=== PATIENT | female | born 1935 | race Caucasian/White ===

== ENCOUNTER 2020-10-31 10:47 | Observation (INO) | payer MEDICARE, BC ==
[~2020-10-31] VITALS: Ht 167.6 cm; Wt 81.5 kg
--- NOTE | ~2020-10-31 | EMS ---
[address] [address] EMS Patient Care Report Name: DAYDAY PEOPLES Room: [address] Abimael Martinez#: [id number] Admission: 10/31/20 Attend Phys: Lucio Neff MD, F Discharge: 11/01/20 Date of : 34 Report #: [id number] THIS REPORT FOR: //name// Report Transmitted: 11/03/2020 21:09 EMS Care Summary [facility] Incident [id number] @ 10/31/2020 09:54 Incident Location [address] Patient DAYDAY PEOPLES Female, 85 Years 1935 Patient Address [address] [place] [address] Patient History Hypertension (HTN),Hyperlipidemia, Patient Allergies No known allergies, Patient Medications Diclofenac, Lisinopril, Simvastatin, Oxybutynin, Amlodipine, Metoprolol, Chief Complaint Dizziness Disposition Transported Lights/[place] Dispatch Reason Sick Person Transported To [facility] Narrative Dispatch: [facility] was dispatched for a female patient with a low pulse and shortness of breath. Med 1 copied tones and went en route emergent. Chief Complaint: Med 1 arrived on scene to find the patient sitting upright in her assessment room. Patient is alert and does not appear to be in any distress [place] [id number] EMS Patient Care Report Name: DAYDAY PEOPLES Room: [address] Abimael M.R.#: [id number] Admission: 10/31/20 Attend Phys: Lucio Neff MD, F Discharge: 11/01/20 Date of : 34 Report #: [id number] or discomfort. Patient???s PCP states the patient is experiencing bradycardia and shortness of breath with no known medical history of either. Patient presents with a pulse of 38. Patient denies chest pain, or discomfort. Patient states she is experiencing intermittent dizziness. History of present illness/YVONNE: Patient states she has been experiencing generalized weakness for approx. 2 weeks. Patient states she was ???unsure of why she was experiencing weakness.??? Patient states she has no known history of bradycardia or shortness of breath. Patient states she started to have an increased feeling of weakness and called her PCP for an appointment. Assessment: Airway: Clear, patent, and self maintained. Breathing: Clear, and equal bilaterally. Non labored. Circulation: Skin is pink, warm, and dry. Weak radial pulses. Disability: A&OX4, GCS 15. Exposures: No life threats were found. See ???assessments??? tab for further. Reason for ambulance: Patient is experiencing bradycardia, requesting EMS treatment and transport to [facility]. Treatments: ALS assessment. 12 lead EKG showing sinus bradycardia. 20G IV LAC with 300ml LR fluid bolus. 3 liters O2 ETCO2 nasal cannula showing non obstructed waveforms. EPI 1:1000 drip 2mcg/min. Vitals monitored throughout transport. Summary: With the assistance of EMS, the patient was placed onto the cot, secured in place, and placed into the ambulance for transport. The patient was placed onto the monitor, and an IV was established. Med 1 went en route emergent to [facility]. The patients overall condition remained unchanged. An EPI 1:1000 drip was started at 2 mcg/min. Radio report was given with no further questions or orders received. Med 1 arrived at destination and the patient was taken to room 15 in the ED where she was sheet transferred onto the bed. Report was given and signatures and paperwork were received. Med 1 returned back in service. Appended: Treatments: 12 lead EKG showing third degree heart block. Initial Vitals @10:26P: 43,R: 20,BP: 80/60,EtCO2: 35,SpO2: 98, @10:17P: 38,R: 19,EtCO2: 23,SpO2: 91, @10:47P: 38,R: 20,BP: 88/50,EtCO2: 34,SpO2: 98, @10:35P: 36,R: 21,BP: 100/50,EtCO2: 34,SpO2: 98, [place] [address] EMS Patient Care Report Name: DAYDAY PEOPLES Room: [place] [address] DIS Abimael M.R.#: [id number] Admission: 10/31/20 Attend Phys: Lucio Neff MD, F Discharge: 11/01/20 Date of : 34 Report #: [id number] @10:12P: 40,R: 18,EtCO2: 34,SpO2: 97, @10:17P: 38,R: 16,BP: 108/52,SpO2: 98, @10:05P: 43,R: 18,BP: 118/56,SpO2: 95, @10:02P: 38,R: 18,BP: 110/58,GCS: 15,Glucose: 142,SpO2: 95,Revised Trauma: 12, Assessments @09:58MENTAL:Time Oriented,Person Oriented,Place Oriented,Event Oriented,SKIN:HEENT:LUNG SOUNDS:ABDOMEN:PELVIS//GI:EXTREMITIES:Capillary Refill: Right Upper: < 2 Sec,PULSE:Radial: 2+ Normal,NEURO:@10:20MENTAL:Person Oriented,Place Oriented,Time Oriented,Event Oriented,SKIN:HEENT:LUNG SOUNDS:ABDOMEN:PELVIS//GI:EXTREMITIES:Capillary Refill: Right Upper: < 2 Sec,PULSE:Radial: 2+ Normal,NEURO: Impression Dizziness Procedures @10:2612-Lead ECGResponse: UnchangedSucceeded@10:0512-Lead ECGResponse: UnchangedSucceeded@10:1712-Lead ECGResponse: UnchangedSucceeded@10:3512-Lead ECGResponse: UnchangedSucceeded@10:05ALS AssessmentResponse: UnchangedSucceeded@10:15Lactated Ringers 300cc (20 ga) Site: Antecubital-LeftResponse: UnchangedSucceeded@10:35Epinephrine 1:1 - 2 Micrograms (mcg) - Intravenous (IV)Response: Improved@10:16Oxygen FlowRate: 3 Device: CO2 Nasal Cannula Response: UnchangedSucceeded Timeline 09:52,Call Received 09:54,Dispatched 09:54,En Route 09:56,On Scene 09:58,At Patient 10:02,BP: 110/58 M,PULSE: 38,RR: 18 R,SPO2: 95 Ox,ETCO2: ,B,PAIN: ,GCS: 15, 10:05,ALS Assessment,Response: UnchangedSucceeded, 10:05,12-Lead ECG,Response: UnchangedSucceeded, 10:05,BP: 118/56 M,PULSE: 43,RR: 18 R,SPO2: 95 Ox,ETCO2: ,BG: ,PAIN: ,GCS: , 10:12,BP: / M,PULSE: 40,RR: 18 R,SPO2: 97 Ox,ETCO2: 34 ,BG: ,PAIN: ,GCS: , 10:15,Lactated Ringers 300cc 20 ga Site: Antecubital-Left,Response: UnchangedSucceeded, 10:16,Oxygen FlowRate: 3 Device: CO2 Nasal Cannula Response: UnchangedSucceeded, 10:16,Depart Scene 10:17,BP: 108/52 M,PULSE: 38,RR: 16 R,SPO2: 98 Ox,ETCO2: ,BG: ,PAIN: ,GCS: , 10:17,12-Lead ECG,Response: UnchangedSucceeded, 10:17,BP: / M,PULSE: 38,RR: 19 R,SPO2: 91 Ox,ETCO2: 23 ,BG: ,PAIN: ,GCS: , 10:26,12-Lead ECG,Response: UnchangedSucceeded, 10:26,BP: 80/60 M,PULSE: 43,RR: 20 R,SPO2: 98 Ox,ETCO2: 35 ,BG: ,PAIN: ,GCS: , [place] [address] EMS Patient Care Report Name: DAYDAY PEOPLES Room: [address] Abimael Martinez#: [id number] Admission: 10/31/20 Attend Phys: Lucio Neff MD, F Discharge: 11/01/20 Date of : 34 Report #: [id number] 10:35,Epinephrine 1:1 - 2 Micrograms (mcg) - Intravenous (IV),Response: Improved 10:35,12-Lead ECG,Response: UnchangedSucceeded, 10:35,BP: 100/50 M,PULSE: 36,RR: 21 R,SPO2: 98 Ox,ETCO2: 34 ,BG: ,PAIN: ,GCS: , 10:44,At Destination 10:47,BP: 88/50 M,PULSE: 38,RR: 20 R,SPO2: 98 Ox,ETCO2: 34 ,BG: ,PAIN: ,GCS: , 11:32,Call Closed Disclaimer v1.1 Copyright 2020 [employer] This EMS Care Summary contains data elements from the applicable legal record (which may be displayed differently). It is designed to provide pertinent information for the following purposes: continuity of care, clinical quality, and state data reporting. The complete legal record is available to ED staff and administrators of the receiving hospital in [employer]'s Patient Tracker. All data is provided "as is."
--- NOTE | ~2020-10-31 | EMS ---
[address] [address] EMS Patient Care Report Name: DAYDAY PEOPLES Room: [address] Abimael Martinez#: [id number] Admission: 10/31/20 Attend Phys: Lucio Neff MD, F Discharge: 11/01/20 Date of : 34 Report #: [id number] THIS REPORT FOR: //name// Report Transmitted: 11/01/2020 22:34 EMS Care Summary [facility] Incident [id number] @ 10/31/2020 09:54 Incident Location [address] Patient DAYDAY PEOPLES Female, 85 Years 1935 Patient Address [address] [place] [address] Patient History Hypertension (HTN),Hyperlipidemia, Patient Allergies No known allergies, Patient Medications Diclofenac, Lisinopril, Simvastatin, Oxybutynin, Amlodipine, Metoprolol, Chief Complaint Dizziness Disposition Transported Lights/[place] Dispatch Reason Sick Person Transported To [facility] Narrative Dispatch: [facility] was dispatched for a female patient with a low pulse and shortness of breath. Med 1 copied tones and went en route emergent. Chief Complaint: Med 1 arrived on scene to find the patient sitting upright in her assessment room. Patient is alert and does not appear to be in any distress [place] [id number] EMS Patient Care Report Name: DAYDAY PEOPLES Room: [address] Abimael M.R.#: [id number] Admission: 10/31/20 Attend Phys: Lucio Neff MD, F Discharge: 11/01/20 Date of : 34 Report #: [id number] or discomfort. Patient???s PCP states the patient is experiencing bradycardia and shortness of breath with no known medical history of either. Patient presents with a pulse of 38. Patient denies chest pain, or discomfort. Patient states she is experiencing intermittent dizziness. History of present illness/YVONNE: Patient states she has been experiencing generalized weakness for approx. 2 weeks. Patient states she was ???unsure of why she was experiencing weakness.??? Patient states she has no known history of bradycardia or shortness of breath. Patient states she started to have an increased feeling of weakness and called her PCP for an appointment. Assessment: Airway: Clear, patent, and self maintained. Breathing: Clear, and equal bilaterally. Non labored. Circulation: Skin is pink, warm, and dry. Weak radial pulses. Disability: A&OX4, GCS 15. Exposures: No life threats were found. See ???assessments??? tab for further. Reason for ambulance: Patient is experiencing bradycardia, requesting EMS treatment and transport to [facility]. Treatments: ALS assessment. 12 lead EKG showing sinus bradycardia. 20G IV LAC with 300ml LR fluid bolus. 3 liters O2 ETCO2 nasal cannula showing non obstructed waveforms. EPI 1:1000 drip 2mcg/min. Vitals monitored throughout transport. Summary: With the assistance of EMS, the patient was placed onto the cot, secured in place, and placed into the ambulance for transport. The patient was placed onto the monitor, and an IV was established. Med 1 went en route emergent to [facility]. The patients overall condition remained unchanged. An EPI 1:1000 drip was started at 2 mcg/min. Radio report was given with no further questions or orders received. Med 1 arrived at destination and the patient was taken to room 15 in the ED where she was sheet transferred onto the bed. Report was given and signatures and paperwork were received. Med 1 returned back in service. Initial Vitals @10:26P: 43,R: 20,BP: 80/60,EtCO2: 35,SpO2: 98, @10:17P: 38,R: 19,EtCO2: 23,SpO2: 91, @10:47P: 38,R: 20,BP: 88/50,EtCO2: 34,SpO2: 98, @10:35P: 36,R: 21,BP: 100/50,EtCO2: 34,SpO2: 98, @10:12P: 40,R: 18,EtCO2: 34,SpO2: 97, [place] [address] EMS Patient Care Report Name: DAYDAY PEOPLES Room: [place] [address] DIS Abimael Martinez#: [id number] Admission: 10/31/20 Attend Phys: Lucio Neff MD, F Discharge: 11/01/20 Date of : 34 Report #: [id number] @10:17P: 38,R: 16,BP: 108/52,SpO2: 98, @10:05P: 43,R: 18,BP: 118/56,SpO2: 95, @10:02P: 38,R: 18,BP: 110/58,GCS: 15,Glucose: 142,SpO2: 95,Revised Trauma: 12, Assessments @09:58MENTAL:Time Oriented,Person Oriented,Place Oriented,Event Oriented,SKIN:HEENT:LUNG SOUNDS:ABDOMEN:PELVIS//GI:EXTREMITIES:Capillary Refill: Right Upper: < 2 Sec,PULSE:Radial: 2+ Normal,NEURO:@10:20MENTAL:Person Oriented,Place Oriented,Time Oriented,Event Oriented,SKIN:HEENT:LUNG SOUNDS:ABDOMEN:PELVIS//GI:EXTREMITIES:Capillary Refill: Right Upper: < 2 Sec,PULSE:Radial: 2+ Normal,NEURO: Impression Dizziness Procedures @10:2612-Lead ECGResponse: UnchangedSucceeded@10:0512-Lead ECGResponse: UnchangedSucceeded@10:1712-Lead ECGResponse: UnchangedSucceeded@10:3512-Lead ECGResponse: UnchangedSucceeded@10:05ALS AssessmentResponse: UnchangedSucceeded@10:15Lactated Ringers 300cc (20 ga) Site: Antecubital-LeftResponse: UnchangedSucceeded@10:35Epinephrine 1:1 - 2 Micrograms (mcg) - Intravenous (IV)Response: Improved@10:16Oxygen FlowRate: 3 Device: CO2 Nasal Cannula Response: UnchangedSucceeded Timeline 09:52,Call Received 09:54,Dispatched 09:54,En Route 09:56,On Scene 09:58,At Patient 10:02,BP: 110/58 M,PULSE: 38,RR: 18 R,SPO2: 95 Ox,ETCO2: ,B,PAIN: ,GCS: 15, 10:05,ALS Assessment,Response: UnchangedSucceeded, 10:05,12-Lead ECG,Response: UnchangedSucceeded, 10:05,BP: 118/56 M,PULSE: 43,RR: 18 R,SPO2: 95 Ox,ETCO2: ,BG: ,PAIN: ,GCS: , 10:12,BP: / M,PULSE: 40,RR: 18 R,SPO2: 97 Ox,ETCO2: 34 ,BG: ,PAIN: ,GCS: , 10:15,Lactated Ringers 300cc 20 ga Site: Antecubital-Left,Response: UnchangedSucceeded, 10:16,Oxygen FlowRate: 3 Device: CO2 Nasal Cannula Response: UnchangedSucceeded, 10:16,Depart Scene 10:17,BP: 108/52 M,PULSE: 38,RR: 16 R,SPO2: 98 Ox,ETCO2: ,BG: ,PAIN: ,GCS: , 10:17,12-Lead ECG,Response: UnchangedSucceeded, 10:17,BP: / M,PULSE: 38,RR: 19 R,SPO2: 91 Ox,ETCO2: 23 ,BG: ,PAIN: ,GCS: , 10:26,12-Lead ECG,Response: UnchangedSucceeded, 10:26,BP: 80/60 M,PULSE: 43,RR: 20 R,SPO2: 98 Ox,ETCO2: 35 ,BG: ,PAIN: ,GCS: , 10:35,Epinephrine 1:1 - 2 Micrograms (mcg) - Intravenous (IV),Response: [place] [address] EMS Patient Care Report Name: DAYDAY PEOPLES Room: [address] Abimael MAlissonRAlisson#: [id number] Admission: 10/31/20 Attend Phys: Lucio Neff MD, F Discharge: 11/01/20 Date of : 34 Report #: [id number] 10:35,12-Lead ECG,Response: UnchangedSucceeded, 10:35,BP: 100/50 M,PULSE: 36,RR: 21 R,SPO2: 98 Ox,ETCO2: 34 ,BG: ,PAIN: ,GCS: , 10:44,At Destination 10:47,BP: 88/50 M,PULSE: 38,RR: 20 R,SPO2: 98 Ox,ETCO2: 34 ,BG: ,PAIN: ,GCS: , 11:32,Call Closed Disclaimer v1.1 Copyright 2020 [employer] This EMS Care Summary contains data elements from the applicable legal record (which may be displayed differently). It is designed to provide pertinent information for the following purposes: continuity of care, clinical quality, and state data reporting. The complete legal record is available to ED staff and administrators of the receiving hospital in [employer]'s Patient Tracker. All data is provided "as is."
[2020-10-31 10:50] VITALS: BP 162/50
[2020-10-31 11:26] LABS: ABSOLUTE LYMPHOCYTES 1.3 thou/uL (0.8-5.3); ABSOLUTE NEUTROPHILS 6.1 thou/uL (1.6-8.1); BASOPHILS 0.4 %; EOSINOPHILS 0.5 %; HEMATOCRIT 32.7 % (37.0-47.0); HEMOGLOBIN 11.2 gm/dL (12.0-15.0); LYMPHOCYTES 15.1 %; MCH 32.8 pg (26.0-34.0); MCHC 34.4 g/dL (28.0-37.0); MCV 95.3 fL (80.0-100.0); MONOCYTES 11.5 %; MPV 8.5 fl. (7.2-11.1); NUCLEATED RBCS 0 /100WBC; PLATELET COUNT* 177 thou/uL (150-400); POLYS 72.5 %; RBC 3.43 mil/uL (4.20-5.00); WBC 8.4 thou/uL (4.0-11.0)
[2020-10-31 11:33] LABS: CALCIUM 8.4 mg/dL (8.5-10.1); CREATININE 1.1 mg/dL (0.6-1.3); POTASSIUM 4.2 mmol/L (3.5-5.1)
[2020-10-31 11:47] LABS: ALBUMIN 2.7 g/dL (3.4-5.0); CK-MB MASS 1.5 ng/mL (<0.5-3.6); MAGNESIUM 2.3 mg/dL (1.8-2.4); TOTAL BILIRUBIN 0.5 mg/dL (<0.1-1.0); TOTAL PROTEIN 6.1 g/dL (6.4-8.2)
[2020-10-31] MEDS ORDERED: PRINIVIL20 M1 PO (12:05)
[2020-10-31] MEDS ORDERED: TOPROL XL50 MG PO (12:05)
[2020-10-31] MEDS ORDERED: SIMVASTATIN80 MG PO (12:06)
[2020-10-31] MEDS ORDERED: OXYBUTYNIN 5 MG5 M2 PO (12:06)
[2020-10-31] MEDS ORDERED: DICLOFENAC SOD100 G1 PO (12:07)
[2020-10-31] MEDS ORDERED: DICLOFENAC35 MG PO (12:08)
[2020-10-31] MEDS ORDERED: NORVASC 2.5 MG2.5 M1 PO (12:58)
[2020-10-31] MEDS ORDERED: NORVASC5 MG PO (12:58)
[2020-10-31 13:32] VITALS: BP 162/50
--- NOTE | 2020-10-31 15:56 | EKG ---
[place] [address] ELECTROCARDIOGRAM REPORT Name: DAYDAY PEOPLES Room: [address] M.R.#: [id number] Admission: 10/31/20 Attend Phys: Lucio Neff MD Discharge: Date of : 33 Date of Service: 10/31/20 1052 Report #: [id number] THIS REPORT FOR: //name// [facility] ED Test Date: 2020-10-31 Test Time: 10:52:38 Pat Name: DAYDAY PEOPLES Department: Room: [facility] Gender: F Aircraft Armorer: ALISON : 1935 Requested By: Gonzalez Beaulieu Order Number: [id number] MD: Lucio Neff Measurements Intervals [place] Rate: 47 P: 0 DE: QRS: 37 QRSD: 139 T: 39 QT: 523 QTc: 463 Interpretive Statements AV block, complete (third degree) Right bundle branch block artifact noted No previous ECG available for comparison Electronically Signed On 10-31-2020 15:56:34 CDT by Lucio Neff [email or web address] <ELECTRONICALLY SIGNED> By: Lucio Neff MD, FACC 10/31/20 1556 1052 1052 Lucio Neff MD, [facility] /EPI
[2020-10-31 16:00] VITALS: BP 145/54
[2020-10-31 16:20] VITALS: BP 145/57
--- NOTE | 2020-10-31 17:09 | 2DMMODE ---
[place] [address] 2 D/M-MODE ECHOCARDIOGRAM Name: DAYDAY PEOPLES Room: [address] Juan#: [id number] Admission: 10/31/20 Attend Phys: Lucio Neff MD Discharge: Date of : 33 Date of Service: 10/31/20 1708 Report #: [id number] THIS REPORT FOR: cc: Joyce Mcdaniel MD, Jayne MD Blick, David R. MD [facility] ~ APPROVED REPORT Study performed: 10/31/2020 16:30:09 EXAM: Comprehensive 2D, Doppler, and color-flow Echocardiogram Patient Location: In-Patient Room #: 227 Status: routine BSA: 1.82 HR: 63 bpm BP: 162/50 mmHg Rhythm: NSR Other Information Study Quality: Good Indications Pacemaker 2D Dimensions IVSd: 11.56 (7-11mm) LVOT Diam: 20.00 (18-24mm) LVDd: 51.49 mm PWd: 10.52 (7-11mm) Ascending Ao: 29.55 (22-36mm) LVDs: 23.95 (25-40mm) Volumes Left Atrial Volume (Systole) LA ESV Index: 37.20 mL/m2 Aortic Valve AoV Peak Jame.: 1.58 m/s AO Peak Gr.: 10.02 mmHg LVOT Max P.00 mmHg AO Mean Gr.: 4.86 mmHg LVOT Mean P.94 mmHg LVOT Max V: 1.32 m/s AO V2 VTI: 33.89 cm LVOT Mean V: 0.76 m/s FRANCIS (VTI): 2.79 cm2 LVOT V1 VTI: 30.08 [place] [address] 2 D/M-MODE ECHOCARDIOGRAM Name: SHELTONDAYDAY Room: [address] M.R.#: [id number] Admission: 10/31/20 Attend Phys: Lucio Neff MD Discharge: Date of : 34 Date of Service: 10/31/20 1708 Report #: [id number] E/A Ratio: 1.09 MV Decel. Time: 252.78 ms MV E Max Jame.: 0.92 m/s MV PHT: 73.31 ms MVA (PHT): 3.00 cm2 TDI E/Lateral E': 13.14 E/Medial E': 13.14 Medial E' Jame.: 0.07 m/s Lateral E' Jame.: 0.07 m/s Pulmonary Valve PV Peak Jame.: 1.10 m/s PV Peak Gr.: 4.88 mmHg Tricuspid Valve RAP Estimate: 5.00 mmHg TR Peak Gr.: 34.42 mmHg RVSP: 39.00 mmHg PA Pressure: 39.00 mmHg Left Ventricle The left ventricle is normal size. There is normal LV segmental wall motion. There is normal left ventricular wall thickness. Left ventricular systolic function is normal. The left ventricular ejection fraction is within the normal range. LVEF is 60-65%. Right Ventricle The right ventricle is normal size. The right ventricular systolic function is normal. Pacemaker lead is present in the right ventricle. Atria Left atrium is mildly dilated. The right atrium size is normal. Aortic Valve Mild aortic valve sclerosis. No aortic regurgitation is present. There is no aortic valvular stenosis. Mitral Valve The mitral valve is normal in structure. Mild mitral regurgitation. No evidence of mitral valve stenosis. Tricuspid Valve The tricuspid valve is normal in structure. Mild tricuspid regurgitation. estimated pa pressure 35 [place] [address] 2 D/M-MODE ECHOCARDIOGRAM Name: DAYDAY PEOPLES Room: [address] Juan#: [id number] Admission: 10/31/20 Attend Phys: Lucio Neff MD Discharge: Date of : 34 Date of Service: 10/31/20 1708 Report #: [id number] The pulmonary valve is normal in structure. Mild pulmonic regurgitation. Great Vessels The aortic root is normal in size. IVC is normal in size and collapses >50% with inspiration. Pericardium Trace pericardial effusion. Left pleural effusion. <Conclusion> LVEF is 60-65%. Left atrium is mildly dilated. Mild aortic valve sclerosis. Mild mitral regurgitation. Left pleural effusion. Mild tricuspid regurgitation. estimated pa pressure 35 mm Hg <ELECTRONICALLY SIGNED> By: Lucio Neff MD, [facility] 10/31/20 1708 07 07 Lucio Neff MD, [facility] /INF
--- NOTE | 2020-10-31 17:49 | CARD ---
[address] [address] CARDIAC CATH REPORT Name: DAYDAY PEOPLES Room: [place] [address] ADM Abimael Juan#: [id number] Admission: 10/31/20 Attend Phys: Lucio Neff MD, F Discharge: Date of : 34 Report #: [id number] THIS REPORT FOR: cc: Joyce Mcdaniel MD, Jayne MD Blick, David R. MD [facility] ~ APPROVED REPORT Study performed: 10/31/2020 13:19:37 Patient Status: ED Room #: Event Personnel: Lucio Neff Oven Baker, Guerda Mariano RN RN, Nelson Fleming RTR Scrub, Dania Peterson RTR Monitor Exam: Insertion of Dual Chamber Permanent Pacemaker Indications: Complete Heart Block The patient is a 85 year-old female with a history of Complete Heart Block. Conscious Sedation Start time: 1407 End Time: 1526 Fentanyl 25 mcg Versed 1 mg Implanted Devices: Generator: Biotronik Edora 8 DR-T SN:[id number] Lead: Biotronik Solia S 53 SN:[id number] Lead: Biotronik Solia S 45 SN:[id number] Procedure The patient underwent informed consent. We discussed the details of the procedure including the risks, which include, but not limited to bleeding, infection, vascular damage, cardiac perforation, and pneumothorax. She understood these risks and was willing to proceed. As such, she was brought to the EP/Cardiac Catheterization laboratory in a fasting and sedated state and prepped and draped in a sterile fashion, received IV antibiotics prior to initiation of the procedure and a venogram was performed showing patency of the left axillary vein. The patient underwent conscious sedation, with no related complications. The patient was brought to the EP/Cardiac Catheterization laboratory and the left chest and shoulder were prepped and draped in a sterile manner. During this case, Fluoroscopy and visipaque 15cc [place] [address] CARDIAC CATH REPORT Name: DAYDAY PEOPLES Room: [address] M.R.#: [id number] Admission: 10/31/20 Attend Phys: Lucio Neff MD, F Discharge: Date of : 34 Report #: [id number] imaging. IV conscious sedation was used throughout procedure with appropriate monitoring and was performed in the presence of a registered nurse who was an independent trained observer other than the physician performing the procedure. The left subclavian region was infiltrated with 2% Lidocaine with Epinephrine subcutaneous anesthesia. A transverse incision was made in the left upper chest cavity. The subcutaneous pocket was formed via blunt dissection. Percutaneous venous access was achieved and an introducer sheath was inserted into the left Subclavian vein. Sheaths were positions using the modified Seldinger technique Through the introducer sheaths the atrial and ventricular lead wires were positioned in the right atrial appendage and right ventricular apex respectively. Capturing and sensing thresholds were verified. Electrode Parameters P Wave: 5.0 mv R Wave: 10.6 mv Atrial Threshold: 0.8 v ! 0.4 ms Ventricular Threshold: 0.9 v @ 0.4 ms Atrial Resistance: 467 ohm Ventricular Resistance: 650 ohm Dual Chamber The atrial and ventricular leads were then secured using 0 silk sutures. The subcutaneous pocket was irrigated with ancef antibiotic solution.The atrial and ventricular leads were attached to the appropriate receptacles on the pulse generator and set screws firmly tightened to insure adequate contact and stability. The lead and pulse generator were placed into the subcutaneous pocket. Sharp and sponge counts were confirmed to be correct. At this time the pocket was closed subcutaneously with a 0 Vicryl and 2.0 Vicryl and the skin was closed with a 4.0 Vicryl. The operative site was dressed in sterile fashion with dermabond and the patient was transferred to the floor in stable condition. Complications The patient tolerated the procedure well and there were no complications associated with the procedure. Findings Specimens Removed: No Estimated Blood Loss: 5 [place] [address] CARDIAC CATH REPORT Name: DAYDAY PEOPLES Room: [address] M.R.#: [id number] Admission: 10/31/20 Attend Phys: Lucio Neff MD, F Discharge: Date of : 34 Report #: [id number] Conclusion successful placement of a dual chamber pacemaker and leads <ELECTRONICALLY SIGNED> By: Lucio Neff MD, [facility] 10/31/201748 48 48Daevita Neff MD, [facility] /INF
[2020-10-31 20:29] VITALS: BP 141/52
[2020-11-01 00:43] VITALS: BP 111/50
[2020-11-01 03:51] VITALS: BP 116/60
[2020-11-01 06:32] LABS: CHOLESTEROL 101 mg/dL (<200); HDL CHOLESTEROL 30 mg/dL (>40); LDL CHOLESTEROL 54 mg/dL (<100); TC:HDL 3.4 Ratio (Not establshd); TRIGLYCERIDE 85 mg/dL (<150); VLDL 17 mg/dL (<40)
[2020-11-01 06:35] LABS: SERUM ASSESSMENT CLEAR
[2020-11-01 08:15] VITALS: BP 146/56
--- NOTE | 2020-11-01 10:23 | H ---
[place] [address] HISTORY AND PHYSICAL Name: DAYDAY PEOPLES Room: [place] [address] ADM Abimael Juan#: [id number] Admission: 10/31/20 Attend Phys: Lucio Neff MD, F Discharge: Date of : 33 Report #: [id number] THIS REPORT FOR: cc: Joyce Mcdaniel MD,Joyce Neff,Lucio Pastor MD [facility] ~ cc: Joyce Mcdaniel MD DATE OF SERVICE: 10/31/2020 HISTORY OF PRESENT ILLNESS: The patient is an 85-year-old white female who I was asked to see in the emergency room today after she was noted to be in complete heart block. The patient has no previous history of heart disease. She stays very active, including mowing the yard. In the past week, she was out in [facility] on vacation. While on vacation, she felt somewhat short of breath and she does have chronic edema. She then complained of back pain. She apparently flew to [place] to [place] on Tuesday and then yesterday was driven by her daughter from [place] back home to [place]. While on vacation, she complained of mid back pain. There was no radiation of pain into her legs. She had no problems with incontinence. She denies any fall or trauma to her back. She denies any chest pain, fever. She does have a history of loose stools. She denies any palpitations. She went to see her doctor today in [place] and was noted to have bradycardia. She was sent by ambulance from the clinic to [place] and admitted for further evaluation and treatment. PAST MEDICAL HISTORY: She has had cataract extraction, hysterectomy, hypertension, hyperlipidemia. CURRENT MEDICATIONS: Include lisinopril, metoprolol, simvastatin, oxybutynin, diclofenac. ALLERGIES: She has no known drug allergies. FAMILY HISTORY: Negative for heart disease. SOCIAL HISTORY: She is . She and her live in [place]. No smoking, alcohol abuse. REVIEW OF SYSTEMS: She has no history of stroke. She is 5 feet 6 inches, 165 pounds. No history of asthma, liver disease, kidney disease. She has had skin cancer removed in the past. She wears glasses. She does have a history of arthritis. She has chronic edema. PHYSICAL EXAMINATION: GENERAL: Revealed an elderly female, who appears in no acute distress. VITAL SIGNS: She had a blood pressure of 160/70, pulse is 40 and regular, [place] [address] HISTORY AND PHYSICAL Name: DAYDAY PEOPLES Room: [address] Abimael MAlissonR.#: [id number] Admission: 10/31/20 Attend Phys: Lucio Neff MD, F Discharge: Date of : 33 Report #: [id number] respirations unlabored. She is afebrile. HEENT: She is anicteric. Conjunctivae pink. Mucous membranes moist. NECK: Veins not distended. No carotid bruits. Neck supple. CHEST: Clear to auscultation. HEART: Regular bradycardia with a grade 3 holosystolic murmur at the apex. ABDOMEN: Soft. EXTREMITIES: Had trace pedal edema. Dorsalis pedis pulse cannot be palpated. SKIN: Cool and dry. NEUROLOGIC: Nonfocal. LABORATORY DATA: ECG shows AV dissociation secondary to third-degree AV block. She had a junctional escape rhythm with a right bundle branch block morphology. Her workup in the emergency room, she had a portable chest x-ray that showed normal heart size, mild interstitial markings are noted consistent with venous congestion. Her lab work, sodium 145, potassium 4.2, creatinine 1.1, glucose 128, albumin 2.7. Troponin 0.06. BNP 12,660. White blood cell count 8.4, hemoglobin 11.2. IMPRESSION AND RECOMMENDATIONS: 1. Complete heart block, reason unclear. I doubt this is related to her beta shantel since she has been on metoprolol for a long time. Recommend permanent dual chamber pacemaker. 2. Hypertension. The patient has been on PANKAJ inhibitor, beta shantel. 3. Hyperlipidemia. The patient is on a statin drug. 4. Back pain. Suspect musculoskeletal. 5. History of chronic diarrhea. <ELECTRONICALLY SIGNED> By: Vahe Reilly MD, FACC 11/01/20 1023 1103 1130Lucio Neff MD, FACC /nt
[2020-11-01 11:04] VITALS: BP 146/56
--- NOTE | 2020-11-02 12:44 | D ---
[address] [address] DISCHARGE SUMMARY Name: DAYDAY PEOPLES Room: [address] Abimael Martinez#: [id number] Admission: 10/31/20 Attend Phys: Lucio Neff MD, F Discharge: 11/01/20 Date of : 33 Report #: [id number] THIS REPORT FOR: cc: Joyce Mcdaniel MD, Jayne MD [place], Michael J. MD [facility] ~ cc: Lucio Neff MD [facility] DATE OF DISCHARGE: 11/01/2020 DISCHARGE DIAGNOSES: 1. Complete heart block. 2. Hypertension. 3. Hyperlipidemia. 4. Status post dual chamber pacemaker placement with atrial and ventricular lead placement. HOSPITAL COURSE: The patient was admitted to the Emergency Room with complete heart block. The patient was seen by Dr. Lucio Neff. The patient was assessed and felt to be a candidate for dual chamber pacemaker placement. A dual chamber pacemaker was placed without complication. Followup chest x-ray showed pacing system in place with no evidence of pneumothorax. The patient's remainder of hospital stay was unremarkable. DISCHARGE MEDICATIONS: 1. Lisinopril 40 mg daily. 2. Simvastatin 20 mg at bedtime. 3. Oxybutynin 5 mg one to two tablets daily. 4. Diclofenac 75 mg daily. 5. Amlodipine 5 mg daily. DISPOSITION: The patient is to follow up with Dr. Neff on 11/13/2020. <ELECTRONICALLY SIGNED> By: Vahe Reilly MD, FACC 11/02/20 1244 0948 [id number] Jake Reilly MD, [facility] /nt
--- NOTE | 2020-11-03 14:35 | EKG ---
[place] [address] ELECTROCARDIOGRAM REPORT Name: ROC PEOPLESLY Room: [address] M.R.#: [id number] Admission: 10/31/20 Attend Phys: Lucio Neff MD Discharge: 11/01/20 Date of : 33 Date of Service: 11/01/20 0654 Report #: [id number] THIS REPORT FOR: //name// [facility] Test Date: 2020-11-01 Test Time: 06:54:13 Pat Name: DAYDAY PEOPLES Department: Room: [facility] Gender: [employer] Attendant: BXIONG : 1935 Requested By: Lucio Neff Order Number: [id number] Johanny MD: Delfin Ramirez Measurements Intervals [place] Rate: 64 P: WI: 163 QRS: -45 QRSD: 174 T: 70 QT: 546 QTc: 564 Interpretive Statements Atrial sensed ventricular-paced complexes No further analysis attempted due to paced rhythm Compared to ECG 10/31/2020 10:52:38 Paced rhythm is noted Electronically Signed On 11-03-2020 14:35:23 CDT by Delfin Ramirez [email or web address] <ELECTRONICALLY SIGNED> By: Delfin Ramirez MD, [facility] 11/03/20 1435 0654 0654 Delfin Ramirez MD, [facility] /EPI
== END 2020-11-01 13:30 | disposition home or self-care (01) ==
LOC: M.CL 10:47 → M.ERS 10:47 → M.CL 13:23 → M.TBA-CV 13:29 → M.TBA-ER 15:13 → M.2W 15:55
PROVIDERS: Family Medicine; ADMIT Internal Medicine Cardiovascular Disease; ATTEND Internal Medicine Cardiovascular Disease
DX: I44.2 Atrioventricular block, complete (principal); Z20.822 Contact with and (suspected) exposure to COVID-19; I10 Essential (primary) hypertension; E78.5 Hyperlipidemia, unspecified; Z79.899 Other long term (current) drug therapy